=== PATIENT | male | born 2000 | race Caucasian/White ===

== ENCOUNTER 2019-09-08 11:52 | Emergency (ER) | payer BC ==
[~2019-09-08] VITALS: Ht 172.7 cm; Wt 68.7 kg
[2019-09-08 11:55] VITALS: BP 132/59
[2019-09-08] MEDS ORDERED: DIPH,PERTUSS(ACELL),TET VAC/PF 0.5 ML IM-VACC ONE ×2 (13:15→13:30)
--- NOTE | 2019-09-08 13:29 | NUR ---
per [facility], no wound care needed for superficial bite to left shoulder. pt called mother, pts mother states last tdap was >5 years ago, GHAZALA Leonardo notified. tdap ordered and admin per emar, pt tolerated well. pt given dc instructions and script, educated regarding dc rx. pt amb to dc desk with steady gait, all questions answered.
== END 2019-09-08 13:30 | disposition home or self-care (01) ==
LOC: ED 13:20
DX: S20.372A Other superficial bite of left front wall of thorax, initial encounter (principal); W50.3XXA Accidental bite by another person, initial encounter; Y93.01 Activity, walking, marching and hiking; Y92.410 Unspecified street and highway as the place of occurrence of the external cause; Y99.8 Other external cause status
CPT/HCPCS: 90471; 90715